=== PATIENT | male | born 1935 | race Caucasian/White ===

== ENCOUNTER 2017-05-21 09:09 | Emergency (ER) | payer MEDICARE, OTHER ==
[2017-05-21 09:21] VITALS: BMI 25.7
[2017-05-21 09:23] VITALS: BP 112/51; RESP 18; TEMP 98.3; O2SAT 98
--- NOTE | 2017-05-21 11:21 | ED PDOC ---
HPI: General Adult Time Seen by Provider: 05/21/17 09:57 Chief Complaint (Nursing): Flu-like Symptoms Chief Complaint (Provider): Flu History Per: Patient History/Exam Limitations: no limitations Onset/Duration Of Symptoms: Days (2-3 days) Current Symptoms Are (Timing): Still Present Additional History Per: Family () Additional Complaint(s): Beto Gloria, a 82 year old male with a past medical history of hypertension , high cholesterol, and diabetes presents to the ED complaining of cough and nasal congestion onset 2-3 days. Reports he has obtained a flu vaccination. His also has similar symptoms and she is also present in the ED with her. Denies fever, chills, or shortness of breath. PMD: Fabian Walker Past Medical History Reviewed: Historical Data, Nursing Documentation, Vital Signs Vital Signs: Last Vital Signs Temp 98.3 F 05/21/17 09:23 Pulse 88 05/21/17 11:29 Resp 18 05/21/17 09:23 BP 112/51 L 05/21/17 09:23 Pulse Ox 98 05/21/17 11:29 - Medical History PMH: Arthritis, HTN, Hypercholesterolemia Denies: Chronic Kidney Disease - Surgical History Surgical History: Cholecystectomy Other surgeries: mitral valve replacement - Family History Family History: States: Unknown Family Hx - Living Arrangements Living Arrangements: Other () - Home Medications Home Medications: Ambulatory Orders Medication Instructions Recorded Acetaminophen/Oxycodone Hydr 325 mg PO Q4 12/22/13 [APAP/Oxycodone 325 mg-5 mg] Aspirin [Aspirin] 325 mg PO DAILY 12/22/13 Cyclobenzaprine HCl [Flexeril] 10 mg PO DAILY 12/22/13 Metformin Hydrochloride [Metformin] 850 mg PO DAILY 12/22/13 Pravastatin Sodium [Pravastatin] 20 mg PO DAILY 12/22/13 Valsartan/Hydrochlorothiazide 160 mg PO DAILY 12/22/13 [Valsartan and Hydrochlorothiazide 25 mg-160 M] Lidocaine [Lidoderm] 1 patch TP Q12 #6 tdm 08/17/14 Oseltamivir Phosphate [Tamiflu] 75 mg PO BID #10 capsule 05/21/17 - Allergies Allergies/Adverse Reactions: Allergies Allergy/AdvReac Type Severity Reaction Status Date / Time No Known Allergies Allergy Verified 08/17/14 11:35 Review of Systems ROS Statement: Except As Marked, All Systems Reviewed And Found Negative Constitutional: Negative for: Fever, Chills ENT: Positive for: Nose Congestion Respiratory: Positive for: Cough. Negative for: Shortness of Breath Physical Exam - Reviewed Nursing Documentation Reviewed: Yes Vital Signs Reviewed: Yes - Physical Exam Appears: Positive for: Well, Non-toxic, No Acute Distress Head Exam: Positive for: ATRAUMATIC, NORMAL INSPECTION, NORMOCEPHALIC Skin: Positive for: Normal Color, Warm, Dry Eye Exam: Positive for: Normal appearance, EOMI, PERRL ENT: Positive for: Other (mid thoracic scar) Neck: Positive for: Normal, Painless ROM, Supple Cardiovascular/Chest: Positive for: Murmur (3/6 systolic ) Respiratory: Positive for: Normal Breath Sounds. Negative for: Wheezing, Respiratory Distress Gastrointestinal/Abdominal: Positive for: Normal Exam, Bowel Sounds, Soft. Negative for: Tenderness Back: Positive for: Normal Inspection. Negative for: L CVA Tenderness, R CVA Tenderness Extremity: Positive for: Normal ROM. Negative for: Pedal Edema, Deformity Neurologic/Psych: Positive for: Alert, Oriented (x3), Gait - ECG ECG Rhythm: Positive for: Sinus Rhythm (normal), Left Bundle Branch Block Rate: 88 O2 Sat by Pulse Oximetry: 98 (RA) Pulse Ox Interpretation: Normal Medical Decision Making Medical Decision Making: Time: 10:10 Impression:Upper Respiratory Tract Infection Initial Plan: --EKG --Chest X-ray --Influenza A B --Reevaluation Time: 11:25 EKG presents, normal sinus rhythm, left bundle branch block, and 88bpm Time: 12:15 FINDINGS: LUNGS: No active pulmonary disease. PLEURA: Small left pleural effusion versus pleural thickening. No pneumothorax apparent. CARDIOVASCULAR: Prior sternotomy with sternal wires and surgical clips in place. Atherosclerotic aortic calcifications. Cardiomediastinal silhouette at the upper limits of normal in size. OSSEOUS STRUCTURES: Degenerative changes. VISUALIZED UPPER ABDOMEN: Right upper quadrant surgical clips OTHER FINDINGS: None. IMPRESSION: Small left pleural effusion versus pleural thickening. Clinical Impression: Influenza-like Symptoms Upon provider evaluation patient is medically stable, and requires no further treatment in the ED at this time. Patient will be discharged with Tamiflu 75mg for Influenza. Counseling was provided and all questions were answered regarding diagnosis and need for follow up with PMD. There is agreement to discharge plan. Return if symptoms persist or worsen. Documented by Kristi Koo acting as a scribe for Tigist Ko MD. All medical record entries made by the Scribe were at my direction and personally dictated by me. I have reviewed the chart and agree that the record accurately reflects my personal performance of the history, physical exam, medical decision making, and the department course for this patient. I have also personally directed, reviewed, and agree with the discharge instructions and disposition. Disposition - Clinical Impression Clinical Impression: Influenza-like symptoms - Disposition Referrals: Fabian Walker MD [Primary Care Provider] - Disposition Time: 12:44 Condition: STABLE Prescriptions: Oseltamivir Phosphate [Tamiflu] 75 mg PO BID #10 capsule Instructions: Influenza (ED) Forms: [employer] (Maori) Print Language: BRUNEIAN
[2017-05-21 11:27] VITALS: PULSE 88
--- NOTE | 2017-05-21 12:16 | RAD ---
HISTORY: CHEST TIGHTNES X 3D WITH COUGH COMPARISON: No prior. TECHNIQUE: Chest PA and lateral FINDINGS: LUNGS: No active pulmonary disease. PLEURA: Small left pleural effusion versus pleural thickening. No pneumothorax apparent. CARDIOVASCULAR: Prior sternotomy with sternal wires and surgical clips in place. Atherosclerotic aortic calcifications. Cardiomediastinal silhouette at the upper limits of normal in size. OSSEOUS STRUCTURES: Degenerative changes. VISUALIZED UPPER ABDOMEN: Right upper quadrant surgical clips OTHER FINDINGS: None. IMPRESSION: Small left pleural effusion versus pleural thickening.
--- NOTE | 2017-05-23 10:45 | CARD ---
APPROVED REPORT EKG Measurement Heart [id number] [id number] <Conclusion> Sinus rhythm with occasional premature ventricular complexes Left bundle branch block Abnormal ECG
== END 2017-05-21 12:59 | disposition home or self-care (01) ==
LOC: H.ER 09:09
DX: J11.1 Influenza due to unidentified influenza virus with other respiratory manifestations (principal); E11.9 Type 2 diabetes mellitus without complications; E78.00 Pure hypercholesterolemia, unspecified; I10 Essential (primary) hypertension; I44.7 Left bundle-branch block, unspecified; Z79.82 Long term (current) use of aspirin; Z79.84 Long term (current) use of oral hypoglycemic drugs; Z95.2 Presence of prosthetic heart valve

== ENCOUNTER 2018-04-15 06:11 | Day surgery (SDC) | payer MEDICARE ==
[2018-04-06 08:09] VITALS: BMI 25.6
[2018-04-15] MEDS ORDERED: Lactated Ringer's 1,000 ML IV ONE (07:30)
[2018-04-15 07:32] VITALS: RESP 18
[2018-04-15] MEDS ORDERED: Lidocaine 1% Inj (20ml) ONE (07:51)
[2018-04-15] MEDS ORDERED: Bupivacaine HCl 0.5% PF (30 ml) Inj ONE (07:51)
[2018-04-15] MEDS ORDERED: MethylPREDNISolone Depo 40 mg/ml Inj ONE (07:51)
[2018-04-15 12:05] VITALS: BP 144/72; PULSE 92; TEMP 98.1; O2SAT 99
--- NOTE | 2018-04-15 15:10 | RAD ---
Date of service: 04/15/2018 PROCEDURE: Lumbar epidural steroid injection HISTORY: PAIN MANAGEMENT COMPARISON: None TECHNIQUE: Standard protocol for this study/examination. FINDINGS: Total fluoroscopic time (continuous mode) utilized during the procedure 29.5 seconds. Total exam DLP: 6.12 (mGy). IMPRESSION: Less than 1 hr fluoroscopic assistance provided during performance of the procedure.
--- NOTE | 2018-04-15 20:18 | OP ---
PROCEDURE DATE: 04/15/2018 PREOPERATIVE DIAGNOSIS: Lumbar spondylosis. POSTOPERATIVE DIAGNOSIS: Lumbar spondylosis. PROCEDURE: Bilateral L3, L4, and L5 medial branch nerve blocks. ANESTHESIOLOGIST: Yessenia Bo MD SURGEON: Patrica Sparks MD ANESTHESIA TYPE: Monitored anesthesia care. COMPLICATIONS: None. SPECIMENS: None. DESCRIPTION OF PROCEDURE: Procedure is as follows. After we had a discussion of the procedure with the patient including its risks, benefits, alternatives, outcome data, possibility of no effect or increased pain, the patient consented to the procedure. He denies any recent infection, bleeding tendencies, or being on anticoagulants. Decision was then made to proceed to the OR. The patient was placed on a fluoroscopy table in a prone position with two pillows underneath his abdomen. The back was prepped and draped in the usual sterile fashion, and a sterile technique was adhered to during the entire procedure. The L3, L4, and L5 medial branch nerves were located at the intersection of the superior articular process and the transverse process of the L4 and L5 pedicles along with the sacral ala. The procedure was first performed on the right side by changing the fluoroscopy towards the right at approximately 15 degrees. The skin overlying the three above target areas were then infiltrated with 1% lidocaine using 25-gauge needle. Subsequently, a 22-gauge 3-1/2 inch spinal needle was incrementally advanced under fluoroscopic guidance until tip of the needle made bony contact with all three target areas. After satisfactory position of all three needles, approximately 3 mL of 0.5% Marcaine and Depo-Medrol mixture was injected. The needle was then removed. The same exact procedure was performed on the contralateral left side using same medications and techniques. At the end of the case, the patient's back was cleaned, and a dry bandage was applied. The patient was then transferred to the recovery area in good condition without any signs of TELLER toxicity or any neurological deficit. He will be following up in the office in approximately two to four weeks. Patrica Sparks MD
== END 2018-04-15 12:16 | disposition home or self-care (01) ==
LOC: H.OPSURG 06:11
PROVIDERS: ATTEND Anesthesiology
DX: M47.816 Spondylosis without myelopathy or radiculopathy, lumbar region (principal); E11.9 Type 2 diabetes mellitus without complications; E78.5 Hyperlipidemia, unspecified; I10 Essential (primary) hypertension
CPT/HCPCS: 64520; 82948; J1030; J3010; J7120